=== PATIENT | female | born 1930 | race Caucasian/White ===

== ENCOUNTER 2018-03-29 19:18 | Inpatient (IN) | payer MEDICARE, MEDICAID ==
[~2018-03-29] VITALS: Ht 152.4 cm; Wt 55.3 kg
--- NOTE | 2018-03-29 19:25 | NUR ---
Dr. Mehta at bedside for MSE.
--- NOTE | 2018-03-29 19:41 | NUR ---
Xray at bedside.
[2018-03-29] MEDS ORDERED: MAGN400O6 PO (19:50)
[2018-03-29] MEDS ORDERED: OXYB5TAB29 PO (19:50)
[2018-03-29] MEDS ORDERED: MIRT15TA PO (19:50)
[2018-03-29] MEDS ORDERED: HYDR25TA86 PO (19:50)
[2018-03-29] MEDS ORDERED: CLON1PAT2 TD (19:50)
[2018-03-29] MEDS ORDERED: TRAZ-144 PO (19:50)
[2018-03-29] MEDS ORDERED: PROP20TA7 PO (19:50)
[2018-03-29] MEDS ORDERED: MAG30ORA PO (19:50)
[2018-03-29] MEDS ORDERED: LEVO150T PO (19:50)
[2018-03-29] MEDS ORDERED: ACET-2154 PO (19:50)
[2018-03-29] MEDS ORDERED: ATOR10TA PO (19:50)
[2018-03-29] MEDS ORDERED: LORA-258 PO (19:50)
[2018-03-29 20:07] LABS: BASOPHILS # (AUTO) 0.1 K/uL (0.0-8.0); BASOPHILS % (AUTO) 1.4 % (0.0-2.0); EOSINOPHILS # (AUTO) 0.4 K/uL (0.0-0.7); EOSINOPHILS % (AUTO) 5.7 % (0.0-7.0); HEMATOCRIT 39.9 % (31.2-41.9); HEMOGLOBIN 13.5 g/dL (10.9-14.3); LYMPHOCYTES # (AUTO) 1.5 K/uL (20.0-40.0); LYMPHOCYTES % (AUTO) 22.9 % (20.5-51.5); MEAN CORPUSCULAR HGB CONC 34 g/dL (32.3-35.6); MEAN CORPUSCULAR VOLUME 103.7 fL (75.5-95.3); MONOCYTES # (AUTO) 0.5 K/uL (2.0-10.0); MONOCYTES % (AUTO) 8.4 % (0.0-11.0); NEUTROPHILS % (AUTO) 61.6 % (38.5-71.5); PLATELET COUNT (AUTO) 288 K/uL (179-408); RED BLOOD CELL COUNT(AUTO) 3.84 MIL/uL (3.63-4.92); WHITE BLOOD COUNT (AUTO) 6.5 K/uL (3.8-11.8)
[2018-03-29 20:19] LABS: CARBON DIOXIDE 30 mmol/L (21-32); CHLORIDE 107 mmol/L (98-107); CREATININE 0.9 mg/dL (0.6-1.3); GLUCOSE 103 mg/dL (74-106); UREA NITROGEN, BLOOD 28 mg/dL (7-18)
[2018-03-29 20:20] LABS: ETHANOL < 3 MG/DL (0-0)
[2018-03-29 20:32] LABS: THYROID STIMULATING HORMONE 6.764 mIU/mL (0.358-3.740)
[2018-03-29 20:33] LABS: ALANINE AMINOTRANSFERASE 29 U/L (14-59); ALKALINE PHOSPHATASE 115 U/L (50-136); ASPARTATE AMINOTRANSFERASE 16 U/L (15-37); BILIRUBIN,DIRECT 0.1 mg/dL (0.0-0.2); BILIRUBIN,TOTAL 0.2 mg/dL (0.2-1.0)
--- NOTE | 2018-03-29 20:40 | NUR ---
Patient out of ER for CT.
[2018-03-29 20:42] LABS: ACETAMINOPHEN < 2.0 ug/mL (10-30)
--- NOTE | 2018-03-29 20:59 | NUR ---
Patient back to ER from CT.
--- NOTE | 2018-03-29 21:31 | NUR ---
Notified Vargas Gaona [facility] for patient psych eval.
[2018-03-29 22:05] LABS: *BILIRUBIN,URIN NEGATIVE (NEGATIVE); *BLOOD, URINE Trace-intact (NEGATIVE); *CLARITY,URINE SLIGHTLY CLOUDY (CLEAR); *COLOR,URINE YELLOW (YELLOW); *KETONES,URINE NEGATIVE (NEGATIVE); *PROTEIN,URINE NEGATIVE (NEGATIVE); LEUKOCYTE ESTERASE ,URINE NEGATIVE (NEGATIVE); NITRITE, URINE NEGATIVE (NEGATIVE); PH,URINE 6.5 (5.0-8.0); UGLUCOSE NEGATIVE (NEGATIVE)
--- NOTE | 2018-03-29 22:07 | NUR ---
Vargas Gaona LCSW arrived to ER for psych evaluation of patient.
[2018-03-29 22:12] LABS: *AMPHETAMINE, URINE NEGATIVE (NEGATIVE); *BARBITURATE, URINE NEGATIVE (NEGATIVE); *CANNABINOID, URINE NEGATIVE (NEGATIVE); *COCCAINE, URINE NEGATIVE (NEGATIVE); *OPIATE, URINE NEGATIVE (NEGATIVE); *PHENCYCLIDINE SCREEN,URINE NEGATIVE (NEGATIVE)
[2018-03-29 22:27] LABS: BACTERIA,URINE NONE SEEN /HPF (NONE SEEN); RBC,URINE 0-3 /HPF (0-3); SQUAMOUS EPITHELIAL CELL,UR FEW /HPF (NONE SEEN)
--- NOTE | 2018-03-29 23:00 | NUR ---
Passed report to [facility] nurse David.
--- NOTE | 2018-03-29 23:25 | NUR ---
Patient became very agitated, was verbally abusive to the nurses, was wandering out of her room, blockaded the door to her room, teresa sanders called. Patient given lorazepam 1mg to left thigh IM.
[2018-03-29] MEDS ORDERED: LORAZEPAM 2 MG/1 ML VIAL ONE (23:26)
[2018-03-29] MEDS ORDERED: LORAZEPAM 2 MG/1 ML VIAL IM ONE (23:30)
[2018-03-29 23:45] VITALS: BP 123/72
[2018-03-30] VITALS (7 sets, daily range): BP systolic 123–190; BP diastolic 72–91
[2018-03-30] MEDS ORDERED: MAGNESIUM HYDROXIDE 30 ML LIQUID UDC PO PRN (00:15)
[2018-03-30] MEDS ORDERED: MAG HYDROX/AL HYDROX/SIMETH 30 ML LIQUID UDC PO PRN (00:15)
[2018-03-30] MEDS ORDERED: ACETAMINOPHEN 325 MG TABLET PO PRN ×2 (00:15→09:45)
--- NOTE | 2018-03-30 02:24 | NUR ---
received an 88 yr old female from ER with admitting diagnosis of psychosis. Was brought in by ambulance from [facility] for aggressive behavior, hitting nurses and throwing objects. Has hx of dementia, anxiety, depressive disorder, HTN and psychosis.AAOx1 very confused and disoriented. Vital signs taken and recorded. Patient placed on [address] Malloy aware of patient's admission. Patient has no known drug allergies. Assisted to gerichair and reassess patient for admission. Patient has some bruises noted on Bilateral arms. Picture taken, and placed in chart. Refused to answer some of the admission assessment. Will monitor patient.
--- NOTE | 2018-03-30 08:20 | NUR ---
RECEIVED REPORT FROM COMPUTER SYSTEM VALIDATION SPECIALIST NURSE, Pt IS CURRENTLY IN ALEJANDRA-CHAIR ON THE HALLWAY NEXT TO NURSE'S STATION. Pt IS ASLEEP AND NO DISTRESS NOTED. COMPUTER SYSTEM VALIDATION SPECIALIST NURSE CALLED AND LEFT MESSAGE FOR FAMILY EARLIER THIS MORNING. AWAITING CONSULTATION AND FURTHER ORDERS FROM PHYSICIAN AND PSYCHIATRIST. NO AGGRESSIVE BX NOTED AT THIS TIME.
[2018-03-30] MEDS ORDERED: hydrALAZINE HCL 25 MG TABLET PO PRN (09:45)
[2018-03-30] MEDS: CLONIDINE TTS 2 PATCH TD SCH (10:53)
[2018-03-30] MEDS: LEVOTHYROXINE SODIUM 150 MCG TABLET PO SCH (10:53)
[2018-03-30] MEDS: PROPRANOLOL HCL 20 MG TABLET PO SCH ×2 (10:53→20:48)
--- NOTE | 2018-03-30 10:55 | NUR ---
MED REC WAS COMPLETED BY DR. LINK THIS MORNING, RECEIVED ORDER FOR HYDRALAZINE 25 MG PO PRN IF SBP >160. Pt BP WAS 190/91 WITH 65 HR, WILL ADMINISTER HYDRALAZINE 25 MG PO PRN ALONG WITH OTHER ROUTINE MEDS ORDERED BY .
[2018-03-30] MEDS: LORAZEPAM 1 MG TABLET PO PRN (15:13)
--- NOTE | 2018-03-30 15:17 | NUR ---
DURING LAB DRAW, Pt BECAME AGITATED AND WAS COMBATIVE WITH STAFF. ADMINISTERED ATIVAN 1 MG PO PRN FOR AGITATION PER MD ORDER. Pt IS SITTING IN ALEJANDRA-CHAIR IN THE HALLWAY NEXT TO NURSE'S STATION FOR CLOSE MONITORING.
[2018-03-30] MEDS: ATORVASTATIN 10 MG TABLET PO SCH (20:45)
[2018-03-30] MEDS: TEMAZEPAM 7.5 MG CAPSULE PO PRN (20:46)
[2018-03-30] MEDS: OXYBUTYNIN XL 5 MG TABSR PO SCH (20:46)
[2018-03-31] MEDS: LORAZEPAM 1 MG TABLET PO PRN (01:32)
[2018-03-31] MEDS: LEVOTHYROXINE SODIUM 150 MCG TABLET PO SCH (07:00)
[2018-03-31 07:30] VITALS: BP 130/60
--- NOTE | 2018-03-31 07:50 | NUR ---
WHEN NURSE MAKING ROUND FOR THE UNIT, FOUND PATIENT LYING ON THE FLOOR ,ALL SIDE RAIL UP ,NOTED PATIENT'S RIGHT FOREARM HAD SKIN TEAR,DENIES ANY PAIN OR DISCOMFORT AT THIS TIME .VS TAKEN FOLLOW ;B/P 140/63,HR 65,RR 18,O2SAT 98%.
--- NOTE | 2018-03-31 08:10 | NUR ---
ASSISTED PATIENT BACK TO ALEJANDRA-CHAIR,ROM DONE ,DR.STACY WINSTON.
--- NOTE | 2018-03-31 08:30 | NUR ---
CALLED PATIENT'S DAUGHTER KRYSTIN NOTIFIED HER FOUND PATIENT ON THE FLOOR AND RIGHT ARM SKIN TEAR.
--- NOTE | 2018-03-31 08:50 | NUR ---
SPOKE WITH DR GRIFFITHS AND NEW ORDERED MADE.
[2018-03-31] MEDS: PROPRANOLOL HCL 20 MG TABLET PO SCH ×3 (08:55→19:49)
[2018-03-31] MEDS: RIVASTIGMINE TARTRATE 1.5 MG CAPSULE PO SCH ×2 (08:55→10:58)
[2018-03-31] MEDS: risperiDONE 0.5 MG TABLET PO SCH ×3 (08:56→19:47)
[2018-03-31 15:37] VITALS: BP 122/97
--- NOTE | 2018-03-31 18:25 | NUR ---
PATIENT'S FAMILY AT BEDSIDE SPOKE WITH PSYCHIATRIST ABOUT PLAN OF CARE,1 TO 1 SITTER AT BEDSIDE FOR FALL RISK ,ASSISTED WITH ALL ADLS,VSS.
[2018-03-31] MEDS: ATORVASTATIN 10 MG TABLET PO SCH (19:46)
[2018-03-31] MEDS: OXYBUTYNIN XL 5 MG TABSR PO SCH (19:49)
[2018-03-31 20:22] VITALS: BP 111/67
[2018-04-01] MEDS: LEVOTHYROXINE SODIUM 150 MCG TABLET PO SCH (06:11)
[2018-04-01 07:30] VITALS: BP 119/74
[2018-04-01] MEDS: PROPRANOLOL HCL 20 MG TABLET PO SCH ×2 (08:45→21:00)
[2018-04-01] MEDS: LORAZEPAM 1 MG TABLET PO PRN ×2 (09:03→20:28)
--- NOTE | 2018-04-01 10:06 | NUR ---
Firearms Report: Baccarat Dealer completed and submitted [employer] Report on 04/01/18.
--- NOTE | 2018-04-01 13:55 | NUR ---
Initial DC Instructions: Patient currently resides at [facility] [[address] [place] [address]; ]. Spoke with pt's daughter, Allegra ([phone]) who states she would like her mother to return to [facility] when stable. SW will continue to collaborate with pt, family, and MD regarding appropriate discharge plan. SW will form a safe and proper discharge plan.
[2018-04-01 15:26] VITALS: BP 151/61
--- NOTE | 2018-04-01 20:00 | NUR ---
RECEIVED PATIENT IN THE HALLWAY SITING IN A ALEJANDRA CHAIR, SHE CONTINUE ON 1:1 SUPERVISION FOR SAFETY SHE IS NOTED A/O X 1, RESTLESS, IRRITABLE, FLIGHT OF IDEAS, COMBATIVE, AND AGGRESSIVE. REFUSED VITAL SIGNS; POOR INSIGHT, POOR JUDGMENT INTO HER ADMISSION TO MHU. PATIENT TAKEN TO THE BATHROOM AND GIVEN MULTIPLE REDIRECTION. SHE WAS ABLE TO CALM DOWN. SAFETY EMPHASIS, WILL CONTINUE TO MONITOR CLOSELY
--- NOTE | 2018-04-01 20:30 | NUR ---
PATIENT NOTED RESTLESS, AGGRESSIVE/COMBATIVE, HYPERVERBAL, DELUSIONAL. ATIVAN 0.5MG PO PRN WAS GIVEN FOR AGITATION. SHE WILL CONTINUE ON 1:1 FOR SAFETY.
[2018-04-01] MEDS: ATORVASTATIN 10 MG TABLET PO SCH (20:58)
[2018-04-01] MEDS: OXYBUTYNIN XL 5 MG TABSR PO SCH (20:58)
[2018-04-01] MEDS: risperiDONE 0.5 MG TABLET PO SCH (20:58)
--- NOTE | 2018-04-01 21:30 | NUR ---
PATIENT WAS NOTED LESS RESTLESS, LESS COMBATIVE LESS AGITATED; HOWEVER, CONTINUE REFUSING VITAL SIGNS AND PULLING THE CUFF OFF HER ARM. WILL CONTINUE TO MONITOR CLOSELY.
--- NOTE | 2018-04-01 21:35 | NUR ---
PATIENT COMPLIANT WITH QHS MEDICATIONS REGIMENT. INDERAL 20MG PO QHS NOT GIVEN DUE TO PATIENT REFUSING V/S. WILL CONTINUE TO ATTEMPT V/S.
--- NOTE | 2018-04-01 22:15 | NUR ---
B/P WAS TAKEN 105/54MMHG AND PULSE 74BPM. INDERAL WAS HELD DUE TO DECREASED B/P. PT NOTED CALM AT THIS TIME. SHE CONTINUE ON 1:1 SUPERVISION FOR FALL PRECAUTION.
[2018-04-01 22:20] VITALS: BP 105/54
[2018-04-02] MEDS: LEVOTHYROXINE SODIUM 150 MCG TABLET PO SCH (07:00)
--- NOTE | 2018-04-02 07:35 | NUR ---
PATIENT REFUSED SYNTHROID QAM. SHE IS NOTED AGITATED, ANXIOUS. ATIVAN OFFERED; HOWEVER, SHE REFUSED. SHE IS REDIRECTED. SHE WILL CONTINUE ON 1:1 SUPERVISION FOR SAFETY.
[2018-04-02] MEDS: PROPRANOLOL HCL 20 MG TABLET PO SCH ×2 (09:00→20:57)
[2018-04-02] MEDS: LORAZEPAM 1 MG TABLET PO PRN ×2 (12:35→19:56)
[2018-04-02 14:53] VITALS: BP 103/85
--- NOTE | 2018-04-02 20:00 | NUR ---
RECEIVED PATIENT IN THE HALLWAY SITING IN A ALEJANDRA CHAIR, SHE CONTINUE ON 1:1 SUPERVISION FOR SAFETY SHE IS NOTED A/O X 1, SHE IS NOTED TALKING IN ARMENIAN MONTSERRATIAN AND ESTONIAN. DOES NOT MAKE ANY SENSE. FLIGHT OF IDEAS, RESTELSS; HOWEVER, LESS COMBATIVE, AND AGGRESSIVE THAN YESTERDAY. POOR INSIGHT, POOR JUDGMENT INTO HER ADMISSION TO MHU. ATIVAN 0.5MG PO PRN WAS GIVEN FOR ANXIETY. SAFETY EMPHASIS, WILL CONTINUE TO MONITOR CLOSELY
[2018-04-02] MEDS: ATORVASTATIN 10 MG TABLET PO SCH (20:56)
[2018-04-02] MEDS: OXYBUTYNIN XL 5 MG TABSR PO SCH (20:57)
[2018-04-02] MEDS: risperiDONE 0.5 MG TABLET PO SCH (20:59)
[2018-04-02 21:53] VITALS: BP 128/80
[2018-04-02] MEDS: TEMAZEPAM 7.5 MG CAPSULE PO PRN (23:14)
--- NOTE | 2018-04-02 23:15 | NUR ---
PATIENT NOTED RESTLESS, UNABLE TO SLEEP, RESTORIL 7.5MG PO PRN WAS GIVEN FOR INSOMNIA. WILL CONTINUE TO MONITOR.
[2018-04-03] MEDS: LORAZEPAM 1 MG TABLET PO PRN ×4 (00:13→16:54)
[2018-04-03] MEDS: LEVOTHYROXINE SODIUM 150 MCG TABLET PO SCH (06:12)
--- NOTE | 2018-04-03 06:21 | NUR ---
PATIENT SLEPT FOR APPROX 1.45 HRS THROUGH THE NIGHT. SHE CONTINUE RESTLESS, RESISTANCE TO CARE; HOWEVER, A SHOWER WAS GIVEN THIS AM. SHE WAS COMPLIANT WITH QAM MEDS. SHE IS NOW IN BED ASLEEP. WILL CONTINUE ON 1:1 SUPERVISION FOR FALL PRECAUTION.
[2018-04-03 07:30] VITALS: BP 121/68
[2018-04-03] MEDS: MIRTAZAPINE 15 MG TABLET PO SCH (08:27)
[2018-04-03] MEDS: PROPRANOLOL HCL 20 MG TABLET PO SCH ×2 (08:28→20:31)
--- NOTE | 2018-04-03 08:37 | NUR ---
PATIENT SLEEPING. GIVEN MEDICATION CRUSHED WITH VANILLA PUDDING. PATIENT WOKEN UP TO TAKE MEDICATIONS.
--- NOTE | 2018-04-03 13:12 | NUR ---
PRN ATIVAN GIVEN. PATIENT IS RESTLESS. VERBAL WITH RANDOM THOUGHTS ARE SPOKEN.
--- NOTE | 2018-04-03 13:13 | NUR ---
REFUSED TO EAT LUNCH. DOES WELL WITH VANILLA PUDDING. PATIENT GIVEN MEDS WITH VANILLA MEDS.
--- NOTE | 2018-04-03 15:00 | NUR ---
PATIENT IS COMBATIVE AND SCRATCHING WHILE CHANGING SOILED LINENS. PATIENT IS NOT COOPERATIVE. PATIENT HAS REPEATEDLY SCRATCHED HERSELF ON ELBOW WHICH HAS BEEN COVERED WITH BANDAID AND RIGHT HAND. SKIN IS OPEN FROM THE REPEATED SCRATCHING. CLEANED AND COVERED THE AREA WITH MEPILEX BANDAGE AND KERLIX WRAP.
--- NOTE | 2018-04-03 15:12 | NUR ---
PATIENT IS STILL VERY RESTLESS. ALREADY GIVEN PRN ATIVAN RESTLESSNESS UNRESOLVED.
--- NOTE | 2018-04-03 15:23 | NUR ---
CALLED AND LEFT MESSAGE WITH DOCTOR BARBRA REGARDING AGITATION AND RESTLESSNESS OF PATIENT. PRN MEDICATION ALREADY GIVEN AND IS NOT EFFECTIVE. LEFT CALL BACK NUMBER FOR ANY ORDERS.
[2018-04-03 15:27] VITALS: BP 104/62
[2018-04-03] MEDS ORDERED: OLANZAPINE 2.5 MG TABLET PO ONE (15:47)
--- NOTE | 2018-04-03 20:00 | NUR ---
RECEIVED PT. IN THE HALLWAY, UP IN A ALEJANDRA CHAIR. PT RESPONDING TO HER NAME ONLY. PT. IS LESS AGITATED THIS TIME. PT REMAINS 1:1 SITTER FOR PT SAFETY. PT SPEAKS MULTIPLE LANGUAGES. WATCHED PT CLOSELY.
--- NOTE | 2018-04-03 20:00 | NUR ---
RECEIVED PT. UP IN ALEJANDRA CHAIR IN THE HALLWAY. RESPONDING TO HER NAME ONLY.SHE SPEAKS MULTIPLE LANGUAGES. PT. REMAINS 1:1 SITTER FOR PT. SAFETY. SLIGTLY AGITATED THIS TIME. WATCHED PT. CLOSELY.
[2018-04-03] MEDS: risperiDONE 0.5 MG TABLET PO SCH (20:31)
[2018-04-03] MEDS: ATORVASTATIN 10 MG TABLET PO SCH (20:32)
[2018-04-03] MEDS: OXYBUTYNIN XL 5 MG TABSR PO SCH (20:32)
[2018-04-03 21:04] VITALS: BP 180/78
[2018-04-04] MEDS: LORAZEPAM 1 MG TABLET PO PRN (00:14)
--- NOTE | 2018-04-04 06:30 | NUR ---
PT. SLEPT APPROX 3HRS. RESTLESS & AGITATED MOST OF THE NIGHT. 1:1 SITTER REMAINS AT BEDSIDE FOR PT. SAFETY WATCHED PT. CLOSELY.
[2018-04-04] MEDS: LEVOTHYROXINE SODIUM 150 MCG TABLET PO SCH (06:53)
[2018-04-04 07:30] VITALS: BP 113/89
--- NOTE | 2018-04-04 07:40 | NUR ---
PATIENT IS IN ROOM SLEEPING
[2018-04-04 08:01] VITALS: BP 113/89
[2018-04-04] MEDS: PROPRANOLOL HCL 20 MG TABLET PO SCH ×3 (08:34→20:32)
[2018-04-04] MEDS: MIRTAZAPINE 15 MG TABLET PO SCH ×2 (08:34→10:30)
--- NOTE | 2018-04-04 09:58 | NUR ---
PATIENT IS STILL SLEEPING IN BED.
--- NOTE | 2018-04-04 10:56 | NUR ---
PATIENT AWAKE RESTLESS. REFUSED ANY BREAKFAST.
--- NOTE | 2018-04-04 13:46 | NUR ---
Residential Leasing Agent: SW received a call from patient's daughter Allegar [[phone]]. She reported being upset because she feels that no one has explained to her why or how her mother fell on 03/31. She expressed that she would like to speak to someone regarding patient's nursing care. CORY informed unit technician Fernie PINEDO and Edilma MORGAN.
[2018-04-04 15:00] VITALS: BP 109/54
--- NOTE | 2018-04-04 17:49 | NUR ---
DOCTOR WILI IN UNIT TO SEE PATIENT. NOTED PATIENT REGRESSION WILL CHANGE MEDICATION REGIMEN.
[2018-04-04 20:00] VITALS: BP 137/87
[2018-04-04] MEDS: ATORVASTATIN 10 MG TABLET PO SCH (20:29)
[2018-04-04] MEDS: TEMAZEPAM 7.5 MG CAPSULE PO SCH (20:29)
[2018-04-04] MEDS: OXYBUTYNIN XL 5 MG TABSR PO SCH (20:31)
[2018-04-04] MEDS ORDERED: risperiDONE 0.5 MG TABLET PO SCH (21:00)
[2018-04-05] MEDS: LEVOTHYROXINE SODIUM 150 MCG TABLET PO SCH (06:10)
--- NOTE | 2018-04-05 06:25 | NUR ---
GPS: REMAIN CONFUSED AND DISORIENTED.CONTINUE ON 1:1 SITTER @ BEDSIDE FOR SAFETY ALL THE TIMES.COMPLIANT WITH AM PO MEDICATIONS. ASSISTED WITH ADL'S. SLEPT 7 HRS THROUGH THE NIGHT. CONTINUE PLAN OF CARE.
[2018-04-05 07:30] VITALS: BP 108/68
[2018-04-05] MEDS: MIRTAZAPINE 15 MG TABLET PO SCH (08:21)
[2018-04-05] MEDS: PROPRANOLOL HCL 20 MG TABLET PO SCH ×2 (08:22→20:33)
[2018-04-05 15:19] VITALS: BP 108/71
[2018-04-05 19:47] VITALS: BP 123/90
[2018-04-05] MEDS: TEMAZEPAM 7.5 MG CAPSULE PO SCH (20:32)
[2018-04-05] MEDS: ATORVASTATIN 10 MG TABLET PO SCH (20:32)
[2018-04-05] MEDS: OXYBUTYNIN XL 5 MG TABSR PO SCH (20:33)
[2018-04-06] MEDS: LEVOTHYROXINE SODIUM 150 MCG TABLET PO SCH (06:05)
--- NOTE | 2018-04-06 06:29 | NUR ---
GPS: REMAIN CONFUSED AND DISORIENTED.CONTINUE ON 1:1 SITTER @ BEDSIDE FOR SAFETY ALL THE TIMES.COMPLIANT WITH AM PO MEDICATIONS. ASSISTED WITH ADL'S. SLEPT 8 HRS THROUGH THE NIGHT. CONTINUE PLAN OF CARE.
[2018-04-06 07:55] VITALS: BP 105/64
[2018-04-06] MEDS: PROPRANOLOL HCL 20 MG TABLET PO SCH ×2 (08:15→21:00)
[2018-04-06] MEDS: MIRTAZAPINE 15 MG TABLET PO SCH (08:15)
[2018-04-06] MEDS: CLONIDINE TTS 2 PATCH TD SCH (10:30)
[2018-04-06 16:33] VITALS: BP 104/71
--- NOTE | 2018-04-06 20:00 | NUR ---
RECEIVED PATIENT IN THE HALLWAY SITING UP IN A ALEJANDRA CHAIR. SHE CONTINUE ON 1:1 SUPERVISION FOR FALL PRECAUTION. SHE IS NOTED A/O X 1 (NAME ONLY) CONFUSED, DISORGANIZED SPEECH. TANGENTIAL AND EASILY IRRITABLE. NO AGGRESSIVE/COMBATIVE BX NOTED AT THIS TIME. SAFETY EMPHASIS. WILL CONTINUE TO MONITOR.
[2018-04-06] MEDS: TEMAZEPAM 7.5 MG CAPSULE PO SCH (20:15)
[2018-04-06] MEDS: ATORVASTATIN 10 MG TABLET PO SCH (20:16)
[2018-04-06] MEDS: OXYBUTYNIN XL 5 MG TABSR PO SCH (20:18)
--- NOTE | 2018-04-07 06:37 | NUR ---
Pt slept for approx 6.0 hrs through the night. She continue easily irritable, refusing care, aggressive when providing care. she refused Synthroid QAM. she continue on 1:1 supervision for fall precaution.
[2018-04-07] MEDS: LEVOTHYROXINE SODIUM 150 MCG TABLET PO SCH (06:58)
[2018-04-07 07:30] VITALS: BP 117/68
[2018-04-07] MEDS: MIRTAZAPINE 15 MG TABLET PO SCH (08:27)
[2018-04-07] MEDS: PROPRANOLOL HCL 20 MG TABLET PO SCH (08:40)
--- NOTE | 2018-04-07 09:09 | NUR ---
REMAIN CONFUSED AND DISORIENTED.CONTINUE ON 1:1 SITTER @ BEDSIDE FOR SAFETY ALL THE TIMES.COMPLIANT WITH AM PO MEDICATIONS. ASSISTED WITH ADL'S. CONTINUE PLAN OF CARE.
--- NOTE | 2018-04-07 14:27 | NUR ---
DC Note: Patient will be discharged back to [facility] [[address] [place] [address]; ] via ambulance. CORY spoke with Marti at [facility] to confirm discharge plans. CORY spoke with patient's daughter Allegra Carroll [[phone]] who is aware and agreeable to discharge plans. Patient will follow up with Dr. Hanley ([facility]) and Dr. Herring (Psychiatrist) at the facility.
[2018-04-07 15:33] VITALS: BP 94/74
--- NOTE | 2018-04-07 16:33 | NUR ---
D/C ORDERS RECEIVED NOTED AND CARRIED OUT,D/C INSTRUCTION AND RN REPORT GIVEN TO [facility] RN VINICIUS GARCIA LEFT THE FACILITY VIA AMBULANCES IN STABLE CONDITION
== END 2018-04-07 16:30 | DRG 885 ==
LOC: ER 19:19 → GPS 23:21
PROVIDERS: ADMIT Psychiatry & Neurology Psychiatry; ATTEND Internal Medicine
DX: F23 Brief psychotic disorder (principal); F03.91 Unspecified dementia, unspecified severity, with behavioral disturbance; I11.9 Hypertensive heart disease without heart failure; F09 Unspecified mental disorder due to known physiological condition; E78.5 Hyperlipidemia, unspecified; R13.10 Dysphagia, unspecified; Z79.899 Other long term (current) drug therapy; E03.9 Hypothyroidism, unspecified; F32.9 Major depressive disorder, single episode, unspecified; F41.9 Anxiety disorder, unspecified; Z91.81 History of falling; K21.9 Gastro-esophageal reflux disease without esophagitis; Z66 Do not resuscitate
CPT/HCPCS: 36415; 70030-TC; 70450; 71045; 73521; 80307; 82746; 83605; 84443; 85025; 85730; 87040; 87086; 93005; 97116; 97530; A4663; G0480; G0480-TC; J2060